=== PATIENT | male | born 1970 | race Caucasian/White ===

== ENCOUNTER → 2019-09-12 15:35 | Outpatient (CLI) | payer OTHER, SELFPAY ==
[2019-09-13 18:30] LABS: COVID19 Sendout Not Detected (Not Detect)
== END ==
PROVIDERS: Family Provider Physician Assistant; PCP Physician Assistant; Visit Provider Physician Assistant
DX: Z11.59 Encounter for screening for other viral diseases (principal)
CPT/HCPCS: 87635

== ENCOUNTER 2019-09-15 09:01 | Day surgery (SDC) | payer OTHER, SELFPAY ==
[2019-09-15 09:20] VITALS: BP 138/87; PULSE 96; RESP 16; TEMP 36.3; O2SAT 97; BMI 26.4
--- NOTE | 2019-09-15 09:48 | PM.HP.1 ---
History of Present Illness History of Present Illness Date Patient Seen: 09/15/19 Time Patient Seen: 09:48 Chief complaint: CAC Narrative: The patient presents for colorectal sreening. They have never had any previous examination for such. No personal or family history of colon cancer. On further history denies any recent gastrointestinal symptoms. No nausea, vomiting, abdominal pain, loss of appetite, unexplained weight loss, change in bowel habits, diarrhea, constipation, melena, hematochezia, or bright red blood per rectum. Patient History Family & Social History Social History: household members spouse Tobacco & Substance use: Smoking Status Never smoker alcohol intake frequency a few times a week Meds Home Medications and Allergies Home Medications Medication Instructions Recorded Confirmed Type multivitamin [Multiple Vitamins] 1 tab PO QDAY #0 02/14/17 History Allergies Allergy/AdvReac Type Severity Reaction Status Date / Time No Known Allergies Allergy Uncoded 05/16/17 12:41 Review of Systems Review of Systems Narrative: A 10 point review of systems is negative except as noted in the HPI Exam Vital Signs (past 8 hours): - 09/15/19 09:20 Temperature 97.3 F L Pulse Rate 96 H Respiratory Rate 16 Blood Pressure 138/87 Pulse Oximetry 97 Oxygen Delivery Method Room Air Narrative Exam Narrative: General-no acute distress, well nourished HEENT-moist mucous membranes, no scleral icterus Neck-supple, no lymphadenopathy Chest- non labored respirations, clear to auscultation bilaterally Cardiac-regular rate no peripheral edema Abdomen-soft, nontender, non distended Extremities-warm, well perfused Neurological-alert and oriented, no focal deficits Assessment & Plan Assessment and plan (1) Screening for colon cancer: Status: Acute Assessment & Plan narrative: The patient requires colorectal screening and colonoscopy is recommended. Technical details were discussed. Risks, benefits, alternatives explained. Risks including but not limited to myocardial infarction, aspiration, bleeding, pain, missed lesion, incomplete examination, need for further radiographic studies, colonic perforation, and need for major abdominal surgery were discussed. All questions were answered to their satisfaction, and they are in agreement with this plan. COVID-19 COVID-19 status: Negative
[2019-09-15] MEDS: LACTATED RINGERS 1,000 ML 100 ML IV ×2 (09:50→10:26)
[2019-09-15] MEDS: fentaNYL 250 MCG/5 ML INJ IV ×3 (09:50→10:00)
[2019-09-15] MEDS: MIDAZOLAM 5 MG/5 ML VIAL 4 MG IV ×4 (09:51→10:00)
[2019-09-15 10:11] VITALS: BP 132/97; PULSE 74; RESP 12; TEMP 36.6; O2SAT 98
--- NOTE | 2019-09-15 10:15 | PM.OP.ENDO ---
Operative Date/Time/Diagnoses Date of procedure: 09/15/19 Time of procedure: 10:15 Pre-op diagnosis: Screening colonoscopy Post-op diagnosis: same Procedure & Clinicians Study performed: Colonoscopy Same procedure as scheduled: Yes Indications: 49-year-old man no prior colonoscopy presents for routine screening. Surgeon: Lemuel Jorge Procedure Notes SCOAP/Timeout: Performed Procedure in detail: Patient placed in left lateral recumbent position. Time out was performed. Procedural sedation was administered with Versed and Fentanyl. Examination began with a thorough inspection of the perianal area there was no evidence of fissures, fistulae, external hemorrhoids or cutaneous malignancy. The colonoscopy scope was then placed into the rectum the the lumen was insufflated with air. The scope was carefully advanced forward. Ultimately the cecum was intubated and confirmed by identification of the ileocecal valve and the confluence of the taenia. The scope was then slowly withdrawn examining colon thoroughly in all directions. In the rectum the rectal columns were identified and retroflexion of the scope was performed for inspection of the distal rectum and anal canal. The colonoscopy was notable for the followin. Quality of the preparation-good 2. No masses or polyps Scope withdrawal time: 6 Sedation minutes: 18 Specimen(s): none sent Complications: none Impression: Normal colonoscopy Post-procedure Recommendations: Colonscopy in 10 years Disposition: same day surgery
[2019-09-15 10:16] VITALS: BP 135/89; PULSE 85; RESP 16; O2SAT 94
[2019-09-15 10:21] VITALS: BP 117/77; PULSE 70; RESP 16; O2SAT 90
[2019-09-15 10:26] VITALS: BP 116/79; PULSE 76; RESP 13; O2SAT 97
[2019-09-15 10:37] VITALS: BP 117/77; PULSE 71; RESP 20; TEMP 37; O2SAT 97
== END 2019-09-15 10:49 | disposition home or self-care (01) ==
PROVIDERS: Family Provider Physician Assistant; PCP Physician Assistant; Referring Provider Surgery; Visit Provider Surgery
PROC: 0DJD8ZZ Inspection of Lower Intestinal Tract, Via Natural or Artificial Opening Endoscopic (ICD-10-PCS; CPT 45378; principal; 2019-09-15 10:00)
DX: Z12.11 Encounter for screening for malignant neoplasm of colon (principal)
CPT/HCPCS: 45378; 99152; J2250; J3010

== ENCOUNTER 2022-12-17 18:10 | Emergency (ER) | payer OTHER, SELFPAY ==
[2022-12-17 18:14] VITALS: BP 149/85; PULSE 127; RESP 20; TEMP 36.9; O2SAT 95; BMI 23.7
--- NOTE | 2022-12-17 18:21 | DI.RAD.S_ITS ---
PROCEDURE: XR CHEST 1V INDICATIONS: chest pain TECHNIQUE: One view of the chest was acquired. COMPARISON: None. FINDINGS: Surgical changes and devices: None. Lungs and pleura: Lungs are clear. No pleural effusions or pneumothorax. Mediastinum: Mediastinal contours appear normal. Heart size is normal. Bones and chest wall: No suspicious bony lesions. Overlying soft tissues appear unremarkable. IMPRESSION: Portable chest within normal limits for age. Approved by: Amadou Guardado M.D. on 12/17/2022 at 18:02
[2022-12-17 18:23] VITALS: PULSE 110; O2SAT 95
[2022-12-17 18:37] LABS: Add Manual Diff / Slide Review NO; Basophils Absolute Auto 0 /uL (0-100); Basophils Percent Auto 0.3 % (0-2); Eosinophils Absolute Auto 100 /uL (0-450); Eosinophils Percent Auto 1.5 % (2-4); Hematocrit 40.4 % (41-53); Hemoglobin 14.2 g/dL (13.5-17.5); Lymphocytes Absolute Auto 2600 /uL (1100-4500); Lymphocytes Percent Auto 42.4 % (25-40); Mean Corpuscular Hemoglobin 33.2 PG (26-34); Mean Corpuscular Volume 94.7 fL (80-100); Monocytes Absolute Auto 500 /uL (0-900); Neutrophils Absolute Auto 3000 /uL (1500-7000); Neutrophils Percent Auto 47.8 % (50-75); Platelet Count 409 X10^3/uL (150-400); Red Blood Cell Count 4.27 X10^6/uL (4.5-5.9); Red Cell Distribution Width 13.8 % (11.6-14.8); White Blood Cell Count 6.2 X10^3/uL (4.5-11.0)
[2022-12-17 18:42] LABS: INR 0.9 (0.9-1.3); Prothrombin Time 10.2 SECONDS (10.1-12.7)
--- NOTE | 2022-12-17 18:44 | PC.NURSE ---
CIWA performed and provider informed of patient score.
[2022-12-17 18:45] LABS: PTT Partial Thromboplastin Tim 32 SECONDS (26-36)
[2022-12-17 18:47] LABS: Alanine Aminotransferase 40 IU/L (<50); Albumin 4.6 g/dL (3.5-5.0); Albumin Globulin Ratio 1.3 (1.0-2.8); Alkaline Phosphatase 70 U/L (38-126); Aspartate Aminotransferase 56 IU/L (17-59); BUN Creatinine Ratio 9.1 (6-22); Bilirubin Total 0.8 mg/dL (0.2-1.3); Blood Urea Nitrogen 7 mg/dL (9-20); Calcium 9.9 mg/dL (8.4-10.2); Carbon Dioxide 28 mmol/L (22-32); Chloride 96 mmol/L (98-107); Creatine Kinase 80 U/L (55-170); Estimated Glomerular Filt Rate > 60 mL/min (>60); Globulin 3.6 g/dL (1.7-4.1); Glucose 130 mg/dL (70-100); HEMOLYSIS < 15 (0-50); Lipase 233 U/L (23-300); Magnesium 1.5 mg/dL (1.6-2.3); Potassium 3.2 mmol/L (3.4-5.1); Sodium 138 mmol/L (137-145); Total Protein 8.2 g/dL (6.3-8.2)
[2022-12-17 18:55] LABS: Ethanol (ETOH) 143 mg/dL
[2022-12-17 18:58] LABS: Troponin I < 0.012 ng/mL (0.01-0.034)
[2022-12-17 19:00] VITALS: BP 126/73; PULSE 93; O2SAT 91
[2022-12-17 19:15] VITALS: BP 119/73; PULSE 91; O2SAT 91
[2022-12-17 19:30] VITALS: BP 120/71; PULSE 91; O2SAT 91
[2022-12-17 19:45] VITALS: BP 118/70; PULSE 91; O2SAT 91
[2022-12-17] MEDS: POTASSIUM CHLORIDE 20 MEQ/15 ML UDC PO (19:56)
--- NOTE | 2022-12-17 19:59 | PC.NURSE ---
Dr. Carly ivey wrote prescription for hydroxyzine 25mg, quant 20, 1 capsule bid prn, anxiety. Called prescription into [facility] in [place]. Pt is aware
--- NOTE | 2022-12-17 22:25 | ED_ITS ---
HPI - Arrhythmia/Palpitations General Chief Complaint: Arrhythmia/Palpitations Stated Complaint: rapid HB/SOB/HBlood P/t-10 Time Seen by Provider: 12/17/22 18:36 History of Present Illness HPI narrative: 52-year-old man with a history of alcohol abuse presenting with episodic hypertension, palpitations and dyspnea. He says that this occurs when he is feeling anxious. He has numerous reasons to feel anxious including a recent divorce in a child in [place]. Has a history of anxiety. He also uses alcohol excessively, admits to 8-10 drinks per day last about 5 hours prior to being seen. He had been a treatment twice. Has no history of alcohol withdrawal seizures he says if he does not drink he does get the shakes at times. He is interested in going to detox. He denies significant past medical history is not regularly on any medications now although previously prescribed medications for anxiety. The patient admits to having had suicidal ideation in the past he is not presently feeling suicidal he is never attempted suicide before Related Data Home Medications Medication Instructions Recorded Confirmed multivitamin (Multiple Vitamins 1 tab PO QDAY ##0 02/14/17 tablet) Allergies Allergy/AdvReac Type Severity Reaction Status Date / Time No Known Allergies Allergy Uncoded 12/17/22 18:18 Patient History Social History household members: spouse Smoking Status: Never smoker Smoking Status: Never smoker alcohol intake frequency: 3 or more drinks per day Alcohol type: beer Substance Use Type: does not use Exam Initial Vital Signs Initial Vital Signs: Vital Signs Temperature 98.4 F 12/17/22 18:14 Pulse Rate 127 H 12/17/22 18:14 Respiratory Rate 20 12/17/22 18:14 Blood Pressure 149/85 H 12/17/22 18:14 Pulse Oximetry 95 12/17/22 18:14 Oxygen Delivery Method Room Air 12/17/22 18:14 Tachycardic on arrival, this resolved spontaneously without intervention Const General: cooperative and No acute distress HENMT Head: normocephalic and atraumatic Mouth: moist mucous membranes Eyes Pupils: PERRL EOM: EOM intact bilaterally Resp Effort & Inspection: normal respiratory effort Auscultation: clear to auscultation bilaterally Cardio Rate: regular rate Heart Sounds: S1 normal and S2 normal Skin General: no rashes or lesions noted Neuro General: patient awake, patient oriented x3, gait normal and moves all extremities Cognition: normal cognition Speech: speech normal Coordination: [id number] test normal Other: No tremor Psych Appearance: grossly normal Speech and Movement: speech and movement normal Affect: anxious affect Thought Process: normal Thought Content: normal Judgment: judgment good Course Orders Ordered: ED Orders 12/17/22 18:21 XR chest 1V Stat EKG-12 Lead Stat 12/17/22 18:25 Complete Blood Count AUTO DIFF Stat Comprehensive Metabolic Panel Stat ETOH [Ethanol (ETOH)] Stat Lipase Stat Magnesium Stat PTT Partial Thromboplastin Mitul Stat Prothrombin Time INR Stat Troponin & CK Cardiac Panel Stat Discontinued Medications Aspirin (Aspirin 81 Mg Chew Tab) 324 mg PO NOW ONE Stop: 12/17/22 18:21 Potassium Chloride (Potassium Chloride 20 Meq/15 Ml Udc) 20 meq PO NOW ONE Stop: 12/17/22 19:45 Last Admin: 12/17/22 19:56 Dose: 20 meq Documented By: SIMONE Vital Signs Vital signs: Vital Signs - 8 hr 12/17/22 18:14 12/17/22 18:23 12/17/22 19:00 Temperature 98.4 F Pulse Rate 127 H 110 H Respiratory Rate 20 Blood Pressure 149/85 H 126/73 Pulse Oximetry 95 95 Oxygen Delivery Method Room Air 12/17/22 19:00 12/17/22 19:15 12/17/22 19:15 Temperature Pulse Rate 93 H 91 H Respiratory Rate Blood Pressure 119/73 Pulse Oximetry 91 91 Oxygen Delivery Method 12/17/22 19:30 12/17/22 19:30 12/17/22 19:45 Temperature Pulse Rate 91 H Respiratory Rate Blood Pressure 120/71 118/70 Pulse Oximetry 91 Oxygen Delivery Method 12/17/22 19:45 Temperature Pulse Rate 91 H Respiratory Rate Blood Pressure Pulse Oximetry 91 Oxygen Delivery Method MDM - Arrhythmia/Palpitations Lab Data Lab results narrative: CBC and CMP are unremarkable, blood alcohol level is consistent with intoxication 12/17/22 18:25 12/17/22 18:25 Labs: Lab Results 12/17/22 Range/Units 18:25 WBC 6.2 (4.5-11.0) X10^3/uL RBC 4.27 L (4.5-5.9) X10^6/uL Hgb 14.2 (13.5-17.5) g/dL Hct 40.4 L (41-53) % MCV 94.7 (80-100) fL MCH 33.2 (26-34) PG MCHC 35.0 (30-36) % RDW 13.8 (11.6-14.8) % Plt Count 409 H (150-400) X10^3/uL Neut % (Auto) 47.8 L (50-75) % Lymph % (Auto) 42.4 H (25-40) % [place] % (Auto) 8.0 (3-14) % Eos % (Auto) 1.5 L (2-4) % Baso % (Auto) 0.3 (0-2) % Neut # (Auto) 3000 (9942-6416) /uL Lymph # (Auto) 2600 (4691-0518) /uL [place] # (Auto) 500 (0-900) /uL Eos # (Auto) 100 (0-450) /uL Baso # (Auto) 0 (0-100) /uL PT 10.2 (10.1-12.7) SECONDS INR 0.9 (0.9-1.3) APTT 32 (26-36) SECONDS Sodium 138 (137-145) mmol/L Potassium 3.2 L (3.4-5.1) mmol/L Chloride 96 L (98-107) mmol/L Carbon Dioxide 28 (22-32) mmol/L BUN 7 L (9-20) mg/dL Creatinine 0.77 (0.66-1.25) mg/dL Estimated GFR > 60 (>60) mL/min BUN/Creatinine Ratio 9.1 (6-22) Glucose 130 H (70-100) mg/dL Calcium 9.9 (8.4-10.2) mg/dL Magnesium 1.5 L (1.6-2.3) mg/dL Total Bilirubin 0.8 (0.2-1.3) mg/dL AST 56 (17-59) IU/L ALT 40 (<50) IU/L Alkaline Phosphatase 70 (38-126) U/L Total Creatine Kinase 80 (55-170) U/L Troponin I < 0.012 (0.01-0.034) ng/mL Total Protein 8.2 (6.3-8.2) g/dL Albumin 4.6 (3.5-5.0) g/dL Globulin 3.6 (1.7-4.1) g/dL Albumin/Globulin Ratio 1.3 (1.0-2.8) Lipase 233 (23-300) U/L Ethyl Alcohol 143 H ( - 10) mg/dL Imaging Data Chest x-ray: My Impression: Independently reviewed one view chest no acute findings ECG Data Interpretation: EKG shows normal sinus rhythm at 102. Normal axis and intervals no acute ST segment changes no evidence of previous infarction Treatment and disposition Social Determinants of Health that impact treatment or disposition: Active alcohol use, anxiety, ongoing divorce Shared decision making:: Brief intervention regarding his alcohol use. Referred to detox MDM Narrative Medical decision making narrative: 52-year-old male actively alcoholic presenting with symptoms compatible with anxiety. He is tachycardic on arrival this resolved spontaneously, he still has a significant alcohol level on my examination I do not think that he is withdrawing although nursing staff reported a CIWA score of 5. He is not suicidal or homicidal. I considered but do not suspect acute coronary syndrome major electrolyte disturbance (he is noted to be mildly hypokalemic) and pulmonary embolism. I am going to treat him symptomatically with hydroxyzine for his anxiety, I recommended that he not check his blood pressure was when he is anxious or upset. Patient was provided contact information for detox should he wish to obtain alcohol treatment. Clinically he did not appear to be intoxicated and certainly his history is consistent with chronic alcohol use Discharge Plan Departure Patient Disposition: Home Clinical Impression: Anxiety, Alcohol abuse Activity Restrictions/Additional Instructions: Emergency department workup today is reassuring. Your blood pressure and pulse have normalized, given your significant social stressors at this point I am not surprised to your having episodes of anxiety. I have provided a prescription for hydroxyzine that I am hoping will help when you are having increased anxiety. In addition, I recommend that you decrease your use of alcohol or eliminate the use of alcohol completely. If you are interested in discontinuing alcohol, [facility] [phone]. If they have a bed available, they can help you through the initial phases of alcohol withdrawal. If you are feeling anxious do not check your blood pressure at that time, it will be high. Return to the emergency department for chest pain, shortness of breath, fainting, plan for self-harm. Prescriptions: Continued multivitamin [Multiple Vitamins] 1 EACH tablet 1 tab PO QDAY Qty: 0 Referrals: Kimberly Marie PA-C [Primary Care Provider] - Stand Alone Forms: Patient Portal/API
== END 2022-12-17 20:09 | disposition home or self-care (01) ==
PROVIDERS: Emergency Provider Emergency Medicine; Family Provider Physician Assistant; PCP Physician Assistant
DX: F10.129 Alcohol abuse with intoxication, unspecified (principal); Y90.6 Blood alcohol level of 120-199 mg/100 ml; F41.9 Anxiety disorder, unspecified; R07.9 Chest pain, unspecified
CPT/HCPCS: 36415; 71045; 80053; 80320; 82550; 83690; 83735; 84484; 85025; 85610; 85730; 93005; 93010; 99284